=== PATIENT | female | born 1985 | race Hispanic/Latino ===

== ENCOUNTER 2017-06-30 10:13 | Emergency (ER) | payer OTHER | END 2017-06-30 11:14 | disposition home or self-care (01) | LOC: EDH 10:13 | DX: M54.32 Sciatica, left side (principal); Z90.49 Acquired absence of other specified parts of digestive tract; Z98.890 Other specified postprocedural states | CPT/HCPCS: 99281 ==

== ENCOUNTER 2017-07-03 11:26 | Emergency (ER) | payer OTHER ==
[2017-07-03 12:20] LABS: APPEARANCE,URINE Clear (CLEAR); BILIRUBIN,URINE Negative (NEGATIVE); COLOR,URINE Yellow (YELLOW); GLUCOSE, URINE (UA) Negative (NEGATIVE); KETONES,URINE Negative (NEGATIVE); LEUKOCYTE ESTERASE ,URINE Negative (NEGATIVE); NITRATE,URINE Negative (NEGATIVE); OCCULT BLOOD,URINE Negative (NEGATIVE); PH,URINE 5.5 (5.0-8.0); PROTEIN,URINE Negative (NEGATIVE); UROBILINOGEN,URINE 0.2 mg/dL (0.2-1.0)
[2017-07-03 12:24] LABS: HCG,QUAL RESULT NEGATIVE (NEGATIVE)
[2017-07-03] MEDS ORDERED: ACETAMINOPHEN 325 MG TAB ONE (12:52)
[2017-07-03] MEDS ORDERED: ONDANSETRON ODT 4 MG TAB ONE (12:52)
[2017-07-03 13:00] LABS: BASOPHILS % (AUTO) 0.7 % (0.0-5.0); EOSINOPHILS % (AUTO) 4.9 % (0.0-8.0); HEMATOCRIT 36.4 % (36-48); LYMPHOCYTES % (AUTO) 29.9 % (21.0-51.0); MEAN CORPUSCULAR HEMOGLOBIN 30.3 pg (27.0-33.0); MEAN CORPUSCULAR HGB CONC 34.7 g/dL (32.0-36.0); MEAN CORPUSCULAR VOLUME 87.6 fL (79-99); MONOCYTES % (AUTO) 7.7 % (3.0-13.0); NEUTROPHILS % (AUTO) 56.8 % (40.0-77.0); PLATELET COUNT (AUTO) 313 K/uL (130-400); RED BLOOD CELL COUNT(AUTO) 4.16 MIL/uL (4.00-5.50); RED CELL DISTRIBUTION WIDTH 13.4 % (11.0-15.5); WHITE BLOOD COUNT (AUTO) 7.9 K/uL (4.8-10.8)
[2017-07-03 13:06] LABS: CREATININE 0.6 mg/dL (0.5-1.5); POTASSIUM 3.9 mmol/L (3.5-5.1)
[2017-07-03 14:13] LABS: INR 0.9 (0.85-1.15); PARTIAL THROMBOPLASTIN TIME 24.8 SEC (26.3-35.5); PROTHROMBIN TIME 9.5 SEC (9.6-11.6)
[2017-07-03 14:15] LABS: ALBUMIN 3.4 g/dL (3.5-5.0); BILIRUBIN,DIRECT 0.1 mg/dL (0.0-0.3); BILIRUBIN,TOTAL 0.3 mg/dL (0.2-1.0); TOTAL PROTEIN, SERUM 7.3 g/dL (6.0-8.3)
[2017-07-03] MEDS ORDERED: KETOROLAC TROMETHAMINE 30MG/ML ONE (14:50)
== END 2017-07-03 15:09 | disposition home or self-care (01) ==
LOC: EDH 11:26
DX: B34.9 Viral infection, unspecified (principal); M54.32 Sciatica, left side; R79.1 Abnormal coagulation profile
CPT/HCPCS: 36415; 72100; 73552; 80048; 80076; 81003; 81025; 85025; 85610; 85730; 87804 ×2; 96374; 99285; J1885

== ENCOUNTER 2021-08-18 13:58 | Emergency (ER) | payer OTHER ==
[~2021-08-18] VITALS: Ht 177.8 cm; Wt 108.9 kg
[2021-08-18 14:01] VITALS: BP 126/76
[2021-08-18] MEDS ORDERED: IBUP-2070 PO (16:26)
[2021-08-18] MEDS ORDERED: IBUPROFEN 600 MG TABLET PO ONE (16:30)
== END 2021-08-18 17:17 | disposition home or self-care (01) ==
LOC: EDH 13:58
DX: S52.501A Unspecified fracture of the lower end of right radius, initial encounter for closed fracture (principal); S52.611A Displaced fracture of right ulna styloid process, initial encounter for closed fracture; Z79.1 Long term (current) use of non-steroidal anti-inflammatories (NSAID); Z90.49 Acquired absence of other specified parts of digestive tract; W01.0XXA Fall on same level from slipping, tripping and stumbling without subsequent striking against object, initial encounter; Y93.89 Activity, other specified; Y92.89 Other specified places as the place of occurrence of the external cause; Y99.8 Other external cause status
CPT/HCPCS: 29125; 73110